=== PATIENT | female | born 1980 | race African-American/Black ===

== ENCOUNTER 2019-04-13 11:38 | Emergency (ER) | payer SELFPAY ==
[~2019-04-13] VITALS: Ht 157.5 cm; Wt 44.9 kg
--- NOTE | 2019-04-13 13:18 | PHYS DOC ---
Adult General Chief Complaint Chief Complaint: BREAST PAIN/INJURY [facility] HPI Patient is a 38 year old female who presents with R breast pain that has been ongoing for 1 week. The patient rates the pain as 4 out of 10 in severity and sharp. Review of Systems Review of Systems Constitutional: Denies fever or chills [] Eyes: Denies change in visual acuity, redness, or eye pain [] HENT: Denies nasal congestion or sore throat [] Respiratory: Denies cough or shortness of breath [] Cardiovascular: No additional information not addressed in HPI [] GI: Denies abdominal pain, nausea, vomiting, bloody stools or diarrhea [] : Denies dysuria or hematuria [] Musculoskeletal: Denies back pain or joint pain [] Integument: Denies rash or skin lesions [] Neurologic: Denies headache, focal weakness or sensory changes [] Endocrine: Denies polyuria or polydipsia [] Complete systems were reviewed and found to be within normal limits, except as documented in this note. Allergies Allergies Allergies Coded Allergies Type Severity Reaction Last Updated Verified No Known Drug Allergies 04/13/19 No Physical Exam Physical Exam Constitutional: Well developed, well nourished, no acute distress, non-toxic a ppearance. [] HENT: Normocephalic, atraumatic, bilateral external ears normal, oropharynx moist, no oral exudates, nose normal. [] Eyes: PERRLA, EOMI, conjunctiva normal, no discharge. [] Neck: Normal range of motion, no tenderness, supple, no stridor. [] Cardiovascular:Heart rate regular rhythm, no murmur [] Lungs & Thorax: Bilateral breath sounds clear to auscultation [] Abdomen: Bowel sounds normal, soft, no tenderness, no masses, no pulsatile masses. [] Skin: Warm, dry, no erythema, no rash. [] Back: No tenderness, no CVA tenderness. [] Extremities: No tenderness, no cyanosis, no clubbing, ROM intact, no edema. [] Neurologic: Alert and oriented X 3, normal motor function, normal sensory function, no focal deficits noted. [] Psychologic: Affect normal, judgement normal, mood normal. [] Breast: Right breast has a nodule that is tenderness to palpation in 9:00 position. Current Patient Data Vital Signs Vital Signs Date Time Temp Pulse Resp B/P (MAP) Pulse Ox O2 Delivery O2 Flow Rate FiO2 04/13/19 12:35 99.3 68 16 136/75 (95) 100 Room Air 99.3 Lab Values Laboratory Tests Test 04/13/19 12:49 POC Urine HCG, Qualitative Hcg negative (Negative) EKG EKG [] Radiology/Procedures Radiology/Procedures [][facility] [address] [place] [address] IMAGING REPORT Signed PATIENT: GWENDOLYN REDDY I ACCOUNT: [id number] : 1980 LOCATION: ER AGE: 38 SEX: F EXAM STATUS: REG ER ORD. PHYSICIAN: ELVIA VAZQUEZ APRN REASON: concern for abscess, R breast tenderness pain PROCEDURE: BREAST RIGHT Examination: BREAST RIGHT History: Pain and tenderness. No focal palpable abnormality reported other than that associated with a scar at 11:00 region. Comparison/Correlation: None Findings: Ultrasound imaging of the right breast was performed from the 6:00 to 12:00 region. There is no mass, cyst, edema, or other suspicious finding. Right axilla is unremarkable. Impression: BI-RADS Category 2-benign. No suspicious finding. The patient reportedly has not undergone mammography in the past. Mammographic examination is recommended on a nonemergent, outpatient basis when the patient is able. Electronically signed by: Omar Godwin MD (04/13/2019 2:08 PM) [facility] DICTATED and SIGNED BY: OMAR GODWIN MD DATE: 04/13/19 1403 Course & Med Decision Making Course & Med Decision Making Pertinent Labs and Imaging studies reviewed. (See chart for details) Will get ultrasound to rule out abscess and d/c to have follow up with primary care. Ultrasound is negative. Will have follow up with PCP for mammogram. Dragon Disclaimer Dragon Disclaimer This electronic medical record was generated, in whole or in part, using a voice recognition dictation system. Departure Departure Impression: Primary Impression: Breast pain, right Disposition: 01 HOME, SELF-CARE Condition: STABLE Referrals: NO PCP (PCP) Additional Instructions: Thank you for visiting [facility]. We appreciate you trusting us with your care. If any additional problems come up don't hesitate to return to visit us. Please follow up with your primary care provider so they can plan additional care if needed and know about the problem that you had. If symptoms worsen come back to the Emergency Department. Any concerning symptoms that start such as chest pain, shortness of air, weakness or numbness on one side of the body, running high fevers or any other concerning symptoms return to the ER. Please follow up with PCP for a mammogram. ELVIA VAZQUEZ APRN Apr 13, 2019 13:18
[2019-04-13 14:00] VITALS: BP 106/77
--- NOTE | 2019-04-13 14:11 | RAD ---
Examination: BREAST RIGHT History: Pain and tenderness. No focal palpable abnormality reported other than that associated with a scar at 11:00 region. Comparison/Correlation: None Findings: Ultrasound imaging of the right breast was performed from the 6:00 to 12:00 region. There is no mass, cyst, edema, or other suspicious finding. Right axilla is unremarkable. Impression: BI-RADS Category 2-benign. No suspicious finding. The patient reportedly has not undergone mammography in the past. Mammographic examination is recommended on a nonemergent, outpatient basis when the patient is able. Electronically signed by: Froylan Sanabria MD (04/13/2019 2:08 PM) [facility]
== END 2019-04-13 14:30 | disposition home or self-care (01) ==
LOC: ER 11:38
DX: N64.4 Mastodynia (principal)
CPT/HCPCS: 76641; 81025; 99284